=== PATIENT | female | born 1950 | race Caucasian/White ===

== ENCOUNTER 2021-05-17 09:52 | Outpatient (CLI) | payer MEDICARE, SELFPAY ==
--- NOTE | 2021-05-17 11:01 | ECG_ITS ---
Measurements Intervals [place] Rate: 99 P: 64 WI: 158 QRS: 18 QRSD: 74 T: 47 QT: 331 QTc: 426 Interpretive Statements SINUS RHYTHM WITH SINUS ARRHYTHMIA BASELINE ARTIFACT- I, II, III, AVR, AVL, AVF NORMAL ECG Electronically Signed On 05-17-2021 11:15:48 BUNDLER by Jorje Stone D.O.
[2021-05-17 11:26] LABS: Basophils Absolute Auto 0.1 K/mm3 (0.0-0.1); Basophils Percent Auto 0.7 % (0.2-1.2); Eosinophils Absolute Auto 0.2 K/mm3 (0-0.3); Eosinophils Percent Auto 2.4 % (0-4.4); Hematocrit 37.9 % (37.0-47.0); Hemoglobin 12.3 g/dL (12.0-15.0); Immature Granulocyte Absolute 0.03 K/mm3 (0.00-0.031); Immature Granulocyte Percent A 0.4 % (0-0.5); Lymphocytes Absolute Auto 1.19 K/mm3 (0.9-3.2); Lymphocytes Percent Auto 17.6 % (18.3-44.2); Mean Corpuscular HGB Conc 32.5 g/dl (32-36); Mean Corpuscular Hemoglobin 30.4 pg (26-34); Mean Corpuscular Volume 93.8 fl (80-100); Monocytes Absolute Auto 0.6 K/mm3 (0.1-0.6); Monocytes Percent Auto 8.6 % (2.6-8.5); Neutrophils Absolute Auto 4.7 K/mm3 (1.3-6.7); Neutrophils Percent Auto 70.3 % (45.5-73.1); Platelet Count Result 215 k/mm3 (150-375); Red Blood Count 4.04 M/mm3 (4.2-5.4); Red Cell Distribution Width 12.4 % (11.5-14.5); White Blood Count 6.8 K/mm3 (4.5-10.0)
[2021-05-17 11:34] LABS: Prothrombin Time 12.8 Seconds (11.1-14.7)
[2021-05-17 11:35] LABS: Partial Thromboplastin Time 25.3 SECONDS (22.3-36.8)
[2021-05-17 11:40] LABS: Alanine Aminotransferase 13 U/L (4-35); Albumin Level 4.4 g/dL (3.5-5.1); Alkaline Phosphatase 88 U/L (38-126); Anion Gap 10 mmol/L (8-16); Aspartate Amino Transferase 21 U/L (14-36); Bilirubin,Total 0.3 mg/dL (0.2-1.3); Blood Urea Nitrogen 26 mg/dL (7-17); Calcium 9.5 mg/dL (8.4-10.2); Carbon Dioxide 25 mmol/L (22-30); Chloride 106 mmol/L (98-107); Estimated Glomerular Filt Rate 49; Glucose 127 mg/dL (65-110); Potassium 3.9 mmol/L (3.4-5.0); Sodium 141 mmol/L (137-145)
== END 2021-05-17 09:53 | disposition home or self-care (01) ==
PROVIDERS: PCP Internal Medicine; Visit Provider Urology
DX: Z01.818 Encounter for other preprocedural examination (principal); N81.4 Uterovaginal prolapse, unspecified
CPT/HCPCS: 36415; 80053; 85025; 85610; 85730; 86850; 86900; 86901; 87077; 87086; 87088; 93005

== ENCOUNTER 2021-05-29 12:43 | Observation (INO) | payer MEDICARE, SELFPAY ==
[2021-05-17 10:07] VITALS: BMI 33.7
--- NOTE | 2021-05-17 10:32 | PC.NURSE ---
Report to the Outpatient Waiting Room, entrance under the green pavilion located off [facility], at time __0600 on date __05/28/21 . OR Time: . - You and your visitor will be asked a series of questions to screen for COVID 19 for your protection. - A mask is required within the hospital. - Only one visitor is allowed at this time. Patient visitors will be guided where to wait when not with patient. Preoperative COVID Testing Requirements: No COVID Test needed if: (proof is required; if not received patient will have Rapid Test prior to entry) - Patient has received COVID Vaccine at least 14 days prior to procedure date or - Patient has positive COVID test result within last 90 days of surgery date. COVID Test needed if above criteria is not met If not COVID vaccinated a COVID test must be conducted within 72 hours of surgery and patient is asked to isolate self from time of testing until procedure. You will go to the [facility] for your COVID testing. The [facility] site is located at the corner of [address] [facility]. You will only be called if COVID results are positive and your surgeon may reschedule your elective surgery date. Patients may have clear liquids (water, carbonated beverages, clear teas, apple juice) until 3 hours prior to surgery with a maximum of 20 ounces. - No food from midnight until time of surgery - Infants may have breast milk until 4 hours before surgery, formula 6 hours prior to surgery. - Children will be allowed to drink immediately following surgery. If applicable, please bring a bottle or sippy cup to assist with drinking. Juice, water, soda, and popsicles are readily available. For infants on formula, please bring formula the day of surgery. Pacifiers are allowed. Take the following medications with a SIP of water the morning of surgery: ___LEVOTHRYOXINE Medications to discontinue per physician ___ASPIRIN AND ADVIL PER DR VERNON , Date to take last dose Please no make-up, nail slovak, hairspray, perfume, deodorant, or body powder the day of surgery. No jewelry (including any body piercings) or valuables the day of surgery, leave them at home. Please take a shower or bath the night before, or the morning of, surgery with an antibacterial soap. Wear comfortable, loose fitting clothing. Children are encouraged to wear pajamas. - Jewelry must be removed prior to entering the operating room. Rings and piercings that are not removed may be cut off. - The hospital will not accept responsibility for valuables. - Please leave all valuables, including medications, at home the day of surgery. If you are going home after surgery, a licensed lunch truck driver must drive you home. - NO public transportation without another adult. - We recommend that an adult stay with you for 24 hours following discharge. - We also recommend that you do not drive, make important decision, drink alcoholic beverages, or take any drugs that were not prescribed by your health care provider for at least 24 hours after your discharge time. For Pediatric surgeries, we recommend two adults accompany the child home (only one inside the building at this time). Follow any additional instructions given to you from your surgeon. VERBAL instructions given to _PATIENT and asked if any additional questions and then verbalized understanding. Patient advised to call surgeon office or pre surgery nurse liaison [phone] if any additional questions.
[2021-05-17 10:46] VITALS: BP 152/58; PULSE 81; RESP 16; TEMP 36.7; O2SAT 98
--- NOTE | 2021-05-25 08:28 | PM.IMHP ---
H&P: HPI History of Present Illness Date/Time: 05/25/21 08:28 71-year-old with stress incontinence as well as uterine prolapse Chief Complaint: Pelvic organ prolapse, stress incontinence Review of Systems Review of Systems: All systems reviewed & are unremarkable except as noted in HPI and below PMFSH Social History Social History Smoking status: Never smoker Spiritual care concerns: No Meds Home Medications and Allergies Home Medications Medication Instructions Recorded Confirmed Type aspirin [Adult Low Dose Aspirin] 81 mg PO DAILY 05/17/21 05/17/21 History cholecalciferol (vitamin D3) 1,250 mcg PO MONTHLY 05/17/21 05/17/21 History esomeprazole magnesium [Nexium] 40 mg PO DAILY 05/17/21 05/17/21 History ibuprofen [Advil] 600 mg PO PRN PRN 05/17/21 05/17/21 History levothyroxine 100 mcg PO DAILY 05/17/21 05/17/21 History lisinopril 10 mg PO DAILY 05/17/21 05/17/21 History rosuvastatin 40 mg PO DAILY 05/17/21 05/17/21 History zolpidem 10 mg PO HS 05/17/21 05/17/21 History Allergies Allergy/AdvReac Type Severity Reaction Status Date / Time fentanyl AdvReac Nausea and Verified 05/17/21 10:17 Vomiting morphine AdvReac Nausea and Verified 05/17/21 10:17 Vomiting oxycodone AdvReac Nausea and Verified 05/17/21 10:17 Vomiting SULFA Allergy Intermediate Hives Uncoded 05/17/21 10:09 Exam Narrative: [place] at +2. Urethral mobility noted Assessment and Plan Assessment and plan (1) Uterine prolapse: Code(s): N81.4 - Uterovaginal prolapse, unspecified Status: Acute Assessment and Plan: Robotic sacral colpopexy (2) FARTUN (stress urinary incontinence, female): Code(s): N39.3 - Stress incontinence (female) (male) Status: Acute Assessment and Plan: Urethral sling
--- NOTE | 2021-05-25 09:12 | PM.IMHP ---
H&P: HPI History of Present Illness Date/Time: 05/25/21 09:12 This is a 70-year-old female with a third-degree prolapse. She is admitted for robotic supracervical hysterectomy and bilateral salpingo-oophorectomy with sacral colpopexy and further treatment per Dr. Posey. Risks and benefits of this procedure were reviewed including but not exclusive of , aspiration pneumonia, bleeding, transfusion, perforation injury to bowel, bladder, ureters, or other internal organs with need for open laparotomy. She received the ACOG handout entitled hysterectomy as well as the de [place] handout. She had all questions answered and asked to proceed she has a known normal Pap smear within the last 2 months Chief Complaint: Uterine prolapse Review of Systems Review of Systems: All systems reviewed & are unremarkable except as noted in HPI and below PMFSH Social History Social History Smoking status: Never smoker Spiritual care concerns: No Meds Home Medications and Allergies Home Medications Medication Instructions Recorded Confirmed Type aspirin [Adult Low Dose Aspirin] 81 mg PO DAILY 05/17/21 05/17/21 History cholecalciferol (vitamin D3) 1,250 mcg PO MONTHLY 05/17/21 05/17/21 History esomeprazole magnesium [Nexium] 40 mg PO DAILY 05/17/21 05/17/21 History ibuprofen [Advil] 600 mg PO PRN PRN 05/17/21 05/17/21 History levothyroxine 100 mcg PO DAILY 05/17/21 05/17/21 History lisinopril 10 mg PO DAILY 05/17/21 05/17/21 History rosuvastatin 40 mg PO DAILY 05/17/21 05/17/21 History zolpidem 10 mg PO HS 05/17/21 05/17/21 History Allergies Allergy/AdvReac Type Severity Reaction Status Date / Time fentanyl AdvReac Nausea and Verified 05/17/21 10:17 Vomiting morphine AdvReac Nausea and Verified 05/17/21 10:17 Vomiting oxycodone AdvReac Nausea and Verified 05/17/21 10:17 Vomiting SULFA Allergy Intermediate Hives Uncoded 05/17/21 10:09 Exam Const: General: no acute distress Eyes: General: appearance normal, both eyes and all related structures Neck: Neck: supple and no JVD Thyroid: thyroid normal Resp: Effort & Inspection: normal respiratory effort Auscultation: clear to auscultation bilaterally Cardio: Rate: regular rate Rhythm: regular rhythm GI: Inspection: non-distended GI Palp: Yes Soft to palpation, No Tenderness to palpation present (GI) and No Guarding due to palpation present (GI) Auscultation: normal bowel sounds : External Female Exam: normal external appearance and Abnormal introitus Speculum Exam - Vagina: normal appearance of the vagina Speculum Exam - Cervix: normal appearance of the cervix (Third degree prolapse present) Bimanual exam- vagina & uterus: Uterus displaced Bimanual Exam- Adnexa, other: no masses Skin: General skin exam: no rashes or lesions noted Extrem: General: normal to inspection and no edema Psych: Mental Status: mental status grossly normal Affect: normal affect Assessment and Plan Additional Plan Impression: Uterine prolapse Plan: Robotic supracervical hysterectomy and bilateral salpingo-oophorectomy. Dr. Posey will perform sacral colpopexy and proceed as indicated
[2021-05-28] VITALS (9 sets, daily range): BP systolic 114–148; BP diastolic 55–72; PULSE 63–103; RESP 8–18; TEMP 36.1–36.7; O2SAT 97–100
[2021-05-28] MEDS: ACETAMINOPHEN 500 MG TABLET 1000 MG PO (06:39)
[2021-05-28] MEDS: LACTATED RINGERS 1,000 ML 30 ML IV CONT ×2 (06:50→10:27)
[2021-05-28] MEDS: KETOROLAC 15 MG/ML VIAL (*BKC) IV PUSH ×2 (06:51→16:13)
--- NOTE | 2021-05-28 07:12 | WPDHPUPDATE1 ---
History and Physical Update Update Date/Time: 05/28/21 07:12 History and Physical has been reviewed, including an updated exam of the patient. There are NO changes in the patient's condition. Risks, benefits, and alternatives have been discussed and questions answered. Patient agrees to proceed with procedure.
--- NOTE | 2021-05-28 07:19 | P.PNAN_ITS ---
Anes - Initial Pre Proc Eval Procedure: Operation Date: 05/28/21 07:30 Proposed Procedures p Robotic Sacrocolpopexy - Michel Posey MD s Urethral Sling - Michel Posey MD s Robotic Assisted Supracervical Hysterectomy with Bilateral Salpingo- oophorectomy - Jean Downs MD Date/Time: 05/28/21 07:19 Surgeon: Michel Posey MD Pre Op Diagnosis: Complete Uterine Prolapse, Stress Incont Patient Data Age: 71 Gender: F Height: 1.47 m Weight: 71.9 kg Last Vital Signs Temp 97.7 F 05/28/21 06:23 Pulse 103 H 05/28/21 06:23 Resp 16 05/28/21 06:23 BP 148/71 H 05/28/21 06:23 Pulse Ox 99 05/28/21 06:23 Allergies Allergy/AdvReac Type Severity Reaction Status Date / Time fentanyl AdvReac Nausea and Verified 05/28/21 06:29 Vomiting morphine AdvReac Nausea and Verified 05/28/21 06:29 Vomiting oxycodone AdvReac Nausea and Verified 05/28/21 06:29 Vomiting SULFA Allergy Intermediate Hives Uncoded 05/28/21 06:29 Home Medications Medication Instructions Recorded Confirmed Type aspirin [Adult Low Dose Aspirin] 81 mg PO DAILY 05/17/21 05/28/21 History cholecalciferol (vitamin D3) 1,250 mcg PO MONTHLY 05/17/21 05/28/21 History esomeprazole magnesium [Nexium] 40 mg PO DAILY 05/17/21 05/28/21 History ibuprofen [Advil] 600 mg PO PRN PRN 05/17/21 05/28/21 History levothyroxine 100 mcg PO DAILY 05/17/21 05/28/21 History lisinopril 10 mg PO DAILY 05/17/21 05/28/21 History rosuvastatin 40 mg PO DAILY 05/17/21 05/28/21 History zolpidem 10 mg PO HS 05/17/21 05/28/21 History Patient hx anesthesia problems: post op nausea/vomiting Family hx anesthesia problems: none Results Review: All pre-operative results and documents have been reviewed as part of the pre-operative evaluation. [facility] Past Medical History Medical History (Updated 01/14/22 @ 13:36 by Josue Patel MD) CAD (coronary artery disease) Hyperlipidemia Hypertension Hypothyroid Surgical History Surgical History (Updated 05/25/21 @ 13:36 by Josue Patel MD) Stented coronary artery Social History Social History Smoking status: Never smoker Living arrangements: with family Spiritual care concerns: No Anes - Eval Final PreProcedure Day of Procedure 05/28/21 07:19 Patient weight: obese Heart: regular rate and rhythm Lungs: clear to auscultation Airway: Mallampati scale class III Neurological: alert and oriented Last oral intake: >/= 8 hours ASA classification: III Emergent: no Anesthetic plan: proceed Anesthesia type and monitoring: general ETT and standard monitoring Results Review: All pre-operative results and documents have been reviewed as part of the pre-operative evaluation. Informed Consent: The patient's anesthetic plan and its attendant risks and benefits were discussed with the patient/family/POA. Questions were solicited and answers provided to the satisfaction of the patient/family/POA.
[2021-05-28] MEDS: SCOPOLAMINE 1.5 MG PATCH TRANSDERM (07:23)
--- NOTE | 2021-05-28 07:23 | WPDHPUPDATE1 ---
History and Physical Update Update Date/Time: 05/28/21 07:23 History and Physical has been reviewed, including an updated exam of the patient. There are NO changes in the patient's condition. Risks, benefits, and alternatives have been discussed and questions answered. Patient agrees to proceed with procedure.
[2021-05-28] MEDS: ceFAZolin 2 GM/D5W 50 ML 2 GM/50 ML BAG IVPB (07:30)
[2021-05-28] MEDS: metroNIDAZOLE 500 MG/ISO 100ML 500 MG/100 ML BAG 100 MG IVPB ×3 (07:30→22:15)
--- NOTE | 2021-05-28 08:47 | P.OP_ITS ---
Procedure Note - Detailed Date of Procedure 05/28/21 Pre-op Diagnosis Complete Uterine Prolapse, Stress Incont Post-op Diagnosis same Procedure Performed Robotic supracervical hysterectomy and bilateral salpingo-oophorectomy Surgeon Jean Downs MD Anesthesia general Indications This is a 71-year-old female with uterine prolapse Findings Prolapsed uterus. Moderate sized benign appearing ovarian cyst. Small amount of adhesions from the left side of adnexa to the colon which were easily brought down Description of Procedure The patient was prepped draped in the normal sterile fashion placed in the dors al lithotomy position. Under excellent general trach anesthesia weighted speculum placed in posterior fornix of vagina. Anterior lip of the cervix grasped with a single-tooth tenaculum and the Stearns's cannula inserted and attached to the single-tooth. This was to be used later for uterine manipulation. A 16 [place] catheter was then placed. The gloves were changed a weighted speculum above. Dr. Hester proceeded with docking of the robot please see his operative report for full details. Once the robot was docked. Attention was turned to the student assistance counselor. The left lung ligament was grasped, burned, cut. And a bladder flap formed anteriorly by sharply dissecting the peritoneum and dissecting the bladder pushing it caudally away from the cervix and uterus to the opposite round ligament was clamped, burned, cut. Some adhesions were seen from the moderate-sized clear walled ovarian cyst to the lateral sidewall. These were sharply dissected easily with monopolar cautery. The infundibulopelvic structure on the left was then skeletonized to remove the left adnexa. This was clamped, burned, cut and brought to the level of the previously cut round ligament. In like fashion the infundibulopelvic structure on the right was skeletonized to remove the right adnexa. This was clamped, burned, cut and brought to level of previously cut round ligament. The cardinal broad ligaments on the right were then serially skeletonized hugging the cervix and uterus clamping burning cutting and bringing this down to the level of the uterine vessels on the right. These were individually clamped, burned, cut. In like fashion the cardinal broad ligaments were skeletonized and clamped, burned, cut and followed down the lateral edge of the uterus and cervix until the vessels could be seen on left. These were then individually clamped, burned, cut. A supracervical incision was made once blood supply was noted in the uterus had blanched. The uterus and tubes and ovaries were placed in an Endo-Catch and Dr. Posey took over from there. Blood loss to this point was 5cc. All sponge, needle, instrument counts were correct. There were no immediate complications up to this portion Estimated Blood Loss 5 Drains No Packing No Pathology yes Complications No immediate complications Condition stable Disposition no change
--- NOTE | 2021-05-28 09:29 | SUR.OPER ---
PATIENT MAINTAINS POSITIONING AND UNCHANGED.
--- NOTE | 2021-05-28 10:27 | W.PM.PROC2 ---
Procedure Note - Detailed Date of Procedure 05/28/21 Pre-op Diagnosis Complete Uterine Prolapse, intrinsic sphincter deficiency Post-op Diagnosis same Procedure Performed Robotic assisted laparoscopic sacral colpopexy Suburethral injection of implant material Surgeon Michel Posey MD Anesthesia general Indications This is a woman with uterine prolapse as well as stress incontinence. She desires surgical correction. She is here for the above. She understands risks of bleeding, infection, diskitis, damage to surrounding organs, bowel injury, bowel obstruction, mesh related complications including exposure and extrusion, postoperative voiding dysfunction including incontinence and retention, need for ancillary procedures, dyspareunia, recurrence of prolapse, and other perioperative intraoperative postoperative complications. She agrees to proceed. Findings Uterine prolapse, narrow pelvis, minimal urethral mobility, atrophic changes and lichen sclerosis Description of Procedure She was correctly identified. Informed consent obtained. She from the operating room. She was given general anesthesia. She was given appropriate perioperative antibiotics. She was placed a low lithotomy position. Pressure points were padded. A time-out performed. I marked out the skin 3 fingerbreadths cephalad to the umbilicus. I anesthetized the skin. I incised the skin. I dissected down to the fascia. I grasped the fascia with Kerri clamps. I entered the fascia sharply in a Fontanez type technique. I placed sutures for later fascial closure. I placed a midline trocar. I examined the abdomen. There is no sign of any injury. Under direct vision I placed 2 additional trocars in the right upper quadrant and 2 additional trocars the left upper quadrant. She was placed in steep Trendelenburg. The robot was docked. Her escapement maker completed their portion of the procedure. Please see that operative report for details. I then sat at the console. The Sizer in the vagina created plane on the anterior and posterior vaginal wall. I took great care not to injure the vagina, bladder, or rectum. I introduced the mesh into the abdomen. I sewed the anterior leaflet of mesh on the anterior vaginal wall. I sewed the posterior leaflet of mesh on the posterior vaginal wall. This was done with several sutures of 2 0 [place]-D[place]. I reflected the colon laterally. She had a very deep and narrow pelvis. I opened the posterior peritoneum over the sacral promontory. I carried this into the cul-de-sac. I freed up the edges for later retroperitonealization. I located the anterior longitudinal ligament the sacrum. I cleaned off all fatty tissues. I then tensioned my mesh appropriately. I did a vaginal exam the bedside. I assured prolapse reduction without undue tension. I then sewed the proximal leaflet of mesh onto the anterior longitudinal ligament of the sacrum with several sutures of 2 0 [place]-Dusty. I then used a 2 0 Monocryl to completely and meticulously retroperitonealized all mesh. I allowed the colon to go back to its normal anatomic location. There is no sign of any impingement. The specimen was then removed. All ports removed. Fascia was tied down. Skin was closed with Monocryl and surgical glue. She was repositioned and prepped. Examination revealed atrophic vaginal changes and changes consistent with lichen sclerosis. She had minimal urethral mobility. She had good apical support. There was not undue tension on the vaginal apex. Due to the state of the vaginal tissues in the minimal urethral mobility I felt the sling was not in her best interest. I opted instead for a bulking agent. I 1st performed cystoscopy. There was no tumors or surgical artifact. Both ureters were seen to excrete clear yellow urine. There is no surgical artifact in the bladder or urethra. She had open urethra consistent with intrinsic sphincter deficiency. I injected the bulking agent c
--- NOTE | 2021-05-28 10:58 | SUR.PHASEI ---
Simple mask removed at 1057.
[2021-05-28] MEDS: ONDANSETRON INJ 4 MG/2 ML VIAL IV PUSH (11:04)
--- NOTE | 2021-05-28 11:47 | PC.NURSE ---
This patient, Krupa Yap, was received from PACU per bed to room 289. Patient/family oriented to unit policies and routines
[2021-05-28] MEDS: KCL 20 MEQ/D5/0.45% SOD CHL 1,000 ML 100 ML IV CONT (12:49)
[2021-05-28] MEDS: PANTOPRAZOLE 40 MG TABLET PO (16:12)
[2021-05-28] MEDS: ZOLPIDEM TARTRATE (*CRX) 5 MG TABLET 10 MG PO (22:15)
--- NOTE | ~2021-05-29 | XR_ITS ---
EXAMINATION: XR shoulder LT min 2V EXAM DATE: 05/29/2021 10:15 INDICATION: Left Shoulder Pain s/p Fall This morning. Initial encounter. TECHNIQUE: The following left shoulder projections obtained: frontal projection with internal rotatio n, frontal projection with external rotation, Grashey, and scapular Y view (4+ views). There is no p rior study for comparison. FINDINGS: There is acute closed posttraumatic fracture through the neck of the left humerus. No shoul rosa dislocation. Possible additional fracture line through the greater tuberosity of humerus. Acromio clavicular joint, glenoid are unremarkable. IMPRESSION: 1. Acute left humeral neck fracture in near-anatomic position, alignment. 2. Possible greater tuberosity fracture. Reviewed, dictated and finalized at location [facility]
[2021-05-29 05:15] VITALS: BP 129/75; PULSE 91; RESP 16; TEMP 36.9
--- NOTE | 2021-05-29 07:12 | PM.GYNPNOP ---
VOCATIONAL TRAINER - A/P Postoperative Procedures: Procedures Operation Date: 05/28/21 07:30 Actual Procedure Side Surgeon p Robotic Sacrocolpopexy Not Applicable Michel Posey MD s Injection of Urethral Bulking Agent, Cystoscopy Michel Posey MD s Robotic Assisted Supracervical Hysterectomy with Bilateral Salpingo-oophorectomy Bilateral Jean Downs MD Time Spent With Patient Time: Total time spent is greater than 50% in coordination of care (as documented) at patient's floor/unit and/or counseling patient: Time with patient: 15 - 25 minutes VOCATIONAL TRAINER- PN:Subj Post-Op Subjective Date/time seen: 05/29/21 07:12 Interval history: Patient fell this morning. Calmed her head hurt her left shoulder. She appears alert and awake there are no neurological changes noted. Her shoulder is tender will get a orthopedic consult Review of Systems Review of Systems: All systems reviewed & are unremarkable except as noted in HPI and below Exam Const: General: no acute distress Eyes: General: appearance normal, both eyes and all related structures Neck: Neck: supple and no JVD Thyroid: thyroid normal Resp: Effort & Inspection: normal respiratory effort Auscultation: clear to auscultation bilaterally Cardio: Rate: regular rate Rhythm: regular rhythm GI: Inspection: normal to inspection and incision (Clean dry and intact) Percussion: Yes normal to percussion Skin: General skin exam: no rashes or lesions noted Extrem: General: normal to inspection and no edema Psych: Mental Status: mental status grossly normal Affect: normal affect VOCATIONAL TRAINER - PN: Obj Data Vital Signs Vital Signs: Vital Signs - 24 hr 05/28/21 10:27 05/28/21 10:40 05/28/21 10:55 Temperature 97.2 F L Pulse Rate 90 78 71 Respiratory Rate 12 14 14 Blood Pressure 117/67 114/61 127/67 Pulse Oximetry 100 100 100 05/28/21 11:10 05/28/21 11:25 05/28/21 11:50 Temperature 97.7 F 98.1 F 97.5 F L Pulse Rate 86 78 92 Respiratory Rate 15 8 L 18 Blood Pressure 131/59 L 126/72 132/65 Pulse Oximetry 99 97 98 05/28/21 16:15 05/28/21 21:30 05/29/21 05:15 Temperature 97.0 F L 97.7 F 98.4 F Pulse Rate 63 95 91 Respiratory Rate 18 16 16 Blood Pressure 122/55 L 134/71 129/75 Pulse Oximetry 98 Intake/Output Intake/Output: Intake & Output 05/26/21 05/27/21 05/28/21 05/29/21 23:59 23:59 23:59 23:59 Intake Total 1540 450 Output Total 140 1600 Balance 1400 -1150 Meds/Results Medications: Active Medications Generic Name Dose Route Start Last Admin Trade Name Freq PRN Reason Stop Dose Admin Acetaminophen 650 mg 05/28/21 10:31 Acetaminophen 325 Mg Tablet PO Q4H PRN Mild Pain (1-3) or Fever Hydrocodone Bitart/Acetaminophen 1 tab 05/28/21 10:31 Hydrocodone/Acetaminophen (*Crx) 5-325 Mg Tablet PO Q4H PRN Pain Rated 4-5 Cephalexin HCl 500 mg 05/29/21 09:00 Cephalexin 500 Mg Capsule PO QID TAYLA Diphenhydramine HCl 25 mg 05/28/21 10:31 Diphenhydramine Hcl Inj 50 Mg/Ml Vial IV PUSH Q6H PRN Itching Docusate Sodium 100 mg 05/29/21 09:00 Docusate Sodium 100 Mg Capsule PO DAILY TAYLA Enoxaparin Sodium 30 mg 05/29/21 09:00 Enoxaparin 30 Mg/0.3 Ml Syringe SUB-Q DAILY TAYLA Metronidazole 500 mg in 100 mls @ 100 mls/hr 05/28/21 14:00 05/28/21 23:15 Flagyl 500 Mg/Iso Soln 100 Ml IVPB Infused Q8HR TAYLA Infusion Potassium Chloride/Dextrose/Sod Cl 1,000 mls @ 100 mls/hr 05/28/21 10:35 05/28/21 12:49 Kcl 20 Meq/D5/0.45% Sod Chl IV CONT 100 mls/hr .Q10H TAYLA Administration Cefazolin Sodium 1 gm in 50 mls @ 100 mls/hr 05/28/21 16:00 05/29/21 00:30 Ancef 1 Gm/D5w 50 Ml Pm IVPB 05/29/21 08:29 Infused Q8H TAYLA Infusion Ketorolac Tromethamine 15 mg 05/28/21 10:31 05/28/21 16:13 Ketorolac 15 Mg/Ml Vial (*Bkc) IV PUSH 01/18/22 10:32 15 mg Q8H PRN Administration Pain Rated 5 or Less Levothyroxine Sodium 100 mcg 05/29/21 06:30 Levot
--- NOTE | 2021-05-29 07:17 | PC.NURSE ---
0645 Pt out in the small on the floor outside of her room #[id number] calling for help, call light was not pushed and fall was not witnessed. Suzy Mcclure RN hears pt and makes sure she is ok, 2nd RN (Suzy Elliott) to pt's side and Dolores Drew retrieved to help pt back to bed. 0650 Pt complains of left shoulder to elbow pain and states that she hit the back of her head but no pain is felt, both RN's assist her up to the Dolores Drew, Suzy Elliott on her right side and Suzy Mcclure from behind so no pressure was put on left arm or shoulder. Pt was successfully put back to bed, bed alarm armed, ice applied to her left shoulder and pt's door to her room was left open. Pt was advised to please hit her call light if she needs to get out of bed. Pt also states that, I see squirrels on the wallpaper ramirez and why am I acting so nutty? . 0703 called and was here already at the hospital so he came straight away to see patient. (See his notes) 0711 Pt's granddaughter, Dyana was called at #[phone] and given an update on patient.
[2021-05-29 07:20] VITALS: BP 101/49; PULSE 92; RESP 18; TEMP 36.6; O2SAT 98
[2021-05-29] MEDS: PANTOPRAZOLE 40 MG TABLET PO (09:40)
[2021-05-29] MEDS: ROSUVASTATIN 10 MG TABLET 40 MG PO (09:40)
[2021-05-29] MEDS: IBUPROFEN 600 MG TABLET PO (09:40)
[2021-05-29] MEDS: LEVOTHYROXINE SODIUM 100 MCG TABLET PO (09:40)
[2021-05-29] MEDS: DOCUSATE SODIUM 100 MG CAPSULE PO (09:40)
[2021-05-29] MEDS: CEPHALEXIN 500 MG CAPSULE PO ×2 (09:40→14:35)
--- NOTE | 2021-05-29 12:30 | PM.CNOR ---
Assessment and Plan Assessment and plan (1) Fracture of neck of left humerus: Qualifiers: Encounter type: initial encounter Fracture type: closed Qualified Code(s): S42.212A - Unspecified displaced fracture of surgical neck of left humerus, initial encounter for closed fracture Code(s): S42.212A - Unspecified displaced fracture of surgical neck of left humerus, initial encounter for closed fracture Status: Acute Assessment and Plan: Patient reported left arm pain status post fall. No loss of consciousness reported. Radiographs obtained which reveal a left humeral neck fracture in near-anatomic position/alignment as well as a greater tuberosity fracture. The fracture type and injury as well as radiographs discussed with the patient and family. Operative and nonoperative treatment options reviewed. The patient elects for non operative treatment. Risk of nonunion, malunion or late displacement discussed. Stiffness, pain and possible dysfunction of the joint discussed. Fracture precautions and activity restrictions reviewed. The patient verbalizes understanding. Plan for sling to the left upper extremity. Reviewed activity restrictions. Patient may remove sling for hygiene purposes. Reviewed use of ice. Ibuprofen or Tylenol as needed. Patient does have a difficulty with nausea related to narcotics. If pain unrelieved by Tylenol/Ibuprofen, may use Zofran oral if difficulty with nausea/vomiting. DEMETRIO HAYNES. Follow up in 3 weeks in the outpatient orthopedic clinic for repeat radiographs/progression of PT/OT. (2) Greater tuberosity of humerus fracture: Qualifiers: Encounter type: initial encounter Fracture type: closed Fracture alignment: nondisplaced Laterality: left Qualified Code(s): S42.255A - Nondisplaced fracture of greater tuberosity of left humerus, initial encounter for closed fracture Code(s): S42.253A - Displaced fracture of greater tuberosity of unspecified humerus, initial encounter for closed fracture Status: Acute History of Present Illness HPI Consult date: 05/29/21 Requesting physician: Jean Downs MD Consult reason: other (Left Arm Pain ) Chief complaint: Complete Uterine Prolapse, Stress Incont Narrative: 71-year-old female admitted to [facility] for surgical intervention by Dr. Posey and Dr. Damien Garcia for complete Uterine prolapse. Orthopedic Service consulted due to a fall the patient had this morning in which she injured her left arm. Patient does have a history of a left total knee arthroplasty by Dr. Goodwin in the past. The patient reports that she was in her postoperative room on the OB unit when she was walking and fell into the wall and then onto the ground. Per the nursing staff this was an unwitnessed fall. The nursing staff heard her yelling for help and came to her room. She denies loss of consciousness or syncopal event prior to her fall. She complains only of left shoulder and arm pain. She denies hip pain or knee pain. She has no right upper extremity pain. Review of Systems Constitutional: Constitutional: Reports no additional constitutional complaints, Denies excessive sweating, Denies fever(s) and Denies weight gain Eyes: Eyes: Reports no additional eye complaints and Denies change in vision ENT: Reports system reviewed and no additional complaints, except as documented and Reports Normal hearing present Cardiovascular: Cardiovascular: Denies chest pain, Denies diaphoresis, Denies leg ulcers and Denies dyspnea on exertion Respiratory: Respiratory: Reports no additional respiratory complaints, Denies cough and Denies dyspnea on exertion Musculoskeletal: Musculoskeletal: Reports no additional musculoskeletal complaints and Reports as per HPI Neurologic: Reports Normal hearing present [facility] Past Medical History Medical History (Updated 05/29/21 @ 12:49 by CATHLEEN Machuca) CAD (coronary artery disease) Fracture of neck of
[2021-05-29] MEDS: HYDROcodone/acetaminophen (*CRX) 5-325 MG TABLET 1 TAB PO (13:01)
--- NOTE | 2021-05-29 16:36 | PC.NURSE ---
Per Dr. Posey (see Provider Communicationa), @ 1340, 300mls of normal saline was put into the patient's bladder via her catheter and then the catheter was removed. By 1400 the patient was able to void 400 mls with a remainder of 160 mls left in her bladder after using the bladder scanner.
--- NOTE | 2021-05-31 07:42 | PM.DS ---
DS: Admitting Diagnosis Discharge Date 05/29/21 Admitting Diagnosis Uterine prolapse DS: Summary Hospital Course Hospital Course: Patient was admitted for robotic supracervical hysterectomy and bilateral salpingo-oophorectomy as well as sacral colpopexy. Postoperatively her surgical course was unremarkable. She did have a fall prior to leaving and broke a shoulder. Orthopedic consult was undertaken and they deemed the sling was enough to hold this in place and they will follow her up. She was up, ambulating, generally without complaints. She was unable to void so she was instructed to return in 48hours to Dr. Posey have the catheter removed. There were no other complications to her stay Time Spent with Patient Time attestation: Total time spent providing and/or coordinating discharge services: Exam Const: General: no acute distress Eyes: General: appearance normal, both eyes and all related structures Neck: Neck: supple and no JVD Thyroid: thyroid normal Resp: Effort & Inspection: normal respiratory effort Auscultation: clear to auscultation bilaterally Cardio: Rate: regular rate Rhythm: regular rhythm GI: Inspection: non-distended GI Palp: Yes Soft to palpation, No Tenderness to palpation present (GI) and No Guarding due to palpation present (GI) Auscultation: normal bowel sounds : General: Yes bladder normal to palpation External Female Exam: normal external appearance Speculum Exam - Vagina: normal vaginal discharge and No vaginal bleeding Speculum Exam - Cervix: nontender Bimanual exam- vagina & uterus: bladder normal to palpation and No Cervical tenderness present OB/external & speculum: No vaginal bleeding Skin: General skin exam: no rashes or lesions noted Extrem: General: normal to inspection and no edema Psych: Mental Status: mental status grossly normal Affect: normal affect DS: Data Data Completed and Pending Completed studies during hospitalization: Pending at discharge 05/28/21 08:41 Surgical [PTH] Routine Discharge Plan Discharge Consulting providers: Jean Downs ; David Parker ; Diego Thomas ; Rukhsana Suresh Discharging Clinician: Michel Posey Patient Disposition: Home, Self-Care Activity: other - see discharge instructions Diet: regular Wound Care Instructions: incision open to air Discharge Instructions: Remove the Scopolamine patch that was placed behind your ear in 72 hours or less. Wash your hands after touching. No lifting >20lb, exercise for 6 weeks No tub bath or pool for 2 weeks No intercourse for 6 weeks Orthopedic Surgery Office #[phone], call for appointment in 3 weeks. Plan for sling to the left upper extremity. Reviewed activity restrictions. Patient may remove sling for hygiene purposes. Reviewed use of ice. Ibuprofen or Tylenol as needed. Patient does have a difficulty with nausea related to narcotics. If pain unrelieved by Tylenol/Ibuprofen, may use Zofran oral if difficulty with nausea/vomiting. Follow up in 3 weeks in the outpatient orthopedic clinic for repeat radiographs/progression of PT/OT. Patient Instructions: How to Use a Sling (DC), Laparoscopic Hysterectomy (DC) Stand Alone Forms: General Discharge Instructions Follow-up/Referrals: David Parker MD [Physician] - 3 Weeks (Our office will contact you with an appt for 3 weeks with [employer] [facility], Rukhsana Suresh ) Michel Posey MD [Physician] - Jean Downs MD [Physician] - Discharge Medications: New hydrocodone-acetaminophen 5-325 mg tablet 1 tablet PO Q6H PRN (Reason: pain) Qty: 20 RF: 0 docusate sodium [Colace] 100 mg capsule 100 mg PO BID Qty: 60 RF: 0 ondansetron 4 mg Tablet,Disintegrating 4 mg PO Q6H PRN (Reason: Nausea And Vomiting) Qty: 20 RF: 0 Continued levothyroxine 100 mcg tablet 100 mcg PO DAILY RF: 0 lisinopril 10 mg tablet 10 mg PO DAILY RF: 0 zolpidem 10 mg tablet 10 mg PO HS RF: 0
== END 2021-05-29 14:45 | disposition home or self-care (01) ==
LOC: ANHSURGERY 13:01 → ANHOB2 13:01
PROVIDERS: Obstetrics & Gynecology; Admitting Provider Urology; PCP Internal Medicine; Visit Provider Urology
PROC: (CPT 57425; principal; 2021-05-28 07:30)
PROC: (CPT 57425; 2021-05-28 07:30)
PROC: 0UT94ZZ Resection of Uterus, Percutaneous Endoscopic Approach (ICD-10-PCS; CPT 57425; 2021-05-28 07:30)
DX: N81.3 Complete uterovaginal prolapse (principal); N39.3 Stress incontinence (female) (male); N36.42 Intrinsic sphincter deficiency (ISD); N85.02 Endometrial intraepithelial neoplasia [EIN]; N73.6 Female pelvic peritoneal adhesions (postinfective); N83.202 Unspecified ovarian cyst, left side; S42.252A Displaced fracture of greater tuberosity of left humerus, initial encounter for closed fracture; S42.212A Unspecified displaced fracture of surgical neck of left humerus, initial encounter for closed fracture; Y92.230 Patient room in hospital as the place of occurrence of the external cause; M95.5 Acquired deformity of pelvis; I25.10 Atherosclerotic heart disease of native coronary artery without angina pectoris; E78.5 Hyperlipidemia, unspecified; I10 Essential (primary) hypertension; E03.9 Hypothyroidism, unspecified; W19.XXXA Unspecified fall, initial encounter; Z96.652 Presence of left artificial knee joint; Z95.5 Presence of coronary angioplasty implant and graft
CPT/HCPCS: 57425; 51715; 58542; S2900; 36415; 73030; 80053; 85025; 85610; 85730; 86850; 86900; 86901; 87077; 87086; 87088; 88307; 93005; 99199; A4565; A9270; C1781; C9290; G0378; J0690; J1100; J1885; J2250; J2405; J2704; J2710; J3010; J3480; J7030; J7120; L8606